=== PATIENT | male | born 1980 | race Asian ===

== ENCOUNTER 2018-06-15 10:12 | Emergency (ER) | payer OTHER ==
--- OUTSIDE RECORDS SUMMARY | 2018-06-15 10:17 | XMS REPORT ---
:1980 External Reference #:[id number] Author Organization [place] [employer] [facility] Address [address] [place] [address] Phone [phone] Care Team Providers Name Role Phone Roman Gusman MD Care Team Information Vault Person Unavailable Roman Gusman MD Primary Care Physician Unavailable Payers Type Date Identification Numbers Payment Provider Subscriber Commercial Policy Number: [id number] [employer] Danielle Whipple PayID: [id number] [address] [place] [id number] Problems Date Description Provider Status Onset: 10/06/2015 Dyssomnia Lizette Barba DNP, RN, Active 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 Onset: 10/06/2015 Hypersomnia Lizette Barba DNP, RN, Active [employer]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 Onset: 01/05/2016 Obstructive sleep apnea Lizette Barba DNP, RN, Active syndrome 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 Family History Date Family Member(s) Problem(s) Comments General MGM DM2 Father No Current Problems Mother No Current Problems Siblings 2 Siblings Brothers healthy Social History Type Date Description Comments Marital Status Single Occupation Currently Working Cigarette Use Quit November 2014 ETOH Use Occasionally consumes alcohol Recreational Drug Use Denies Drug Use Smoking Light tobacco smoker (10 or fewer cigarettes/day) Daily Caffeine Consumes on average 1 cup of regular coffee per day Exercise Type/Frequency Exercises sporadically Allergies, Adverse Reactions, Alerts Date Description Reaction Status Severity Comments 05/10/2015 NKDA active Medications Medication Date Status Form Strength Qnty SIG Indications Ordering Provider Metformin HCL 01/04/ Active Tablets 500mg 60tabs 2 by mouth Lizette 2015 twice a SERG Barba, day RN, 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 Gemfibrozil 05/09/ Active Tablets 600mg 1 by mouth Unknown 2014 twice a day Robitussin 05/09/ Active Syrup as Unknown A-C/Sugar Free 2014 directed Freestyle Lite 05/09/ Active use as Unknown Blood Glucose 2014 directed Monitoring System Ramipril 05/09/ Active Capsules 10mg 1 by mouth Unknown 2014 every day Humalog 05/08/ Active Solution 100Unit/ML use as Jason Phillips, 2015 directed M.D. Lantus / Active Solution 100Unit/ML 50 units Unknown 0000 daily Tajao 04/04/ Hx 48 u in Unknown 2015 - the a.m. 01/21/ subQ 2016 Insulin 02/14/ Hx as Unknown 2015 - directed 01/21/ subQ 2016 Altace 05/09/ Hx Capsules 10mg 1 by mouth Unknown 2014 - every day 2014 Lantus 05/09/ Hx Solution 100Unit/ML 50 units Unknown 2014 - daily subQ 2015 Vital Signs Date Vital Result Comment 05/18/2018 Height 62 inches 5'2" Weight 199.38 lb Heart Rate 74 /min BP Systolic Sitting 130 mmHg Rue large cuff BP Diastolic Sitting 82 mmHg Rue large cuff Respiratory Rate 16 /min O2 % BldC Oximetry 98 % BMI (Body Mass Index) 36.5 kg/m2 05/02/2017 Height 62 inches 5'2" Weight 204.00 lb Heart Rate 60 /min BP Systolic Sitting 122 mmHg BP Diastolic Sitting 74 mmHg Respiratory Rate 14 /min O2 % BldC Oximetry 98 % BMI (Body Mass Index) 37.3 kg/m2 01/22/2017 Height 62 inches 5'2" Heart Rate 90 /min BP Systolic Sitting 130 mmHg BP Diastolic Sitting 82 mmHg Respiratory Rate 18 /min Pain Level 0 O2 % BldC Oximetry 98 % 06/10/2016 Height 62 inches 5'2" Weight 200.00 lb Heart Rate 74 /min BP Systolic Sitting 132 mmHg BP Diastolic Sitting 77 mmHg Respiratory Rate 16 /min O2 % BldC Oximetry 98 % BMI (Body Mass Index) 36.6 kg/m2 04/05/2016 Height 63 inches 5'3" Weight 197.00 lb per pt Heart Rate 66 /min BP Systolic Sitting 130 mmHg BP Diastolic Sitting 66 mmHg Respiratory Rate 16 /min O2 % BldC Oximetry 98 % BMI (Body Mass Index) 34.9 kg/m2 02/16/2016 Height 63 inches 5'3" Weight 208.00 lb Heart Rate 90 /min BP Systolic Sitting 126 mmHg BP Diastolic Sitting 66 mmHg Respiratory Rate 14 /min O2 % BldC Oximetry 98 % BMI (Body Mass Index) 36.8 kg/m2 01/05/2016 Height 63 inches 5'3" Weight 197.00 lb Heart Rate 77 /min BP Systolic 122 mmHg BP Diastolic 70 mmHg Respiratory Rate 14 /min O2 % BldC Oximetry 98 % BMI (Body Mass Index) 34.9 kg/m2 10/06/2015 Height 63 inches 5'3" Weight 197.00 lb Heart Rate 85 /min BP Systolic Sitting 126 mmHg BP Diastolic Sitting 66 mmHg Respiratory Rate 18 /min O2 % BldC Oximetry 97 % BMI (Body Mass Index) 34.9 kg/m2 05/10/2015 Height 63 inches 5'3" Weight 197.25 lb Heart Rate 56 /min BP Systolic Sitting 124 mmHg BP Diastolic Sitting 68 mmHg Respiratory Rate 18 /min O2 % BldC Oximetry 98 % BMI (Body Mass Index) 34.9 kg/m2 Neck Circumference in inches 17 Results Description No Information Procedures Date CPT Code Description Status 10/11/2015 20718 Polysomnography Sleep Staging 4+ Parameters W/Cpap Completed Encounters Type Date Location Provider CPT E/M Dx Office Visit 05/02/2017 [place] [address] G47.33 8:30a [facility] E66.01 Z68.37 Office Visit 01/22/2017 9:45a [facility] Lizette Barba, 82055 G47.33 [facility] LIANET ULRICH, GUSTAVO R09.02 G47.14 Office Visit 06/10/2016 8:00a [facility] Lizette Barba, 30660 G47.33 [facility] Floorperson LIANET ULRICH FNP-BC G47.14 Office Visit 04/05/2016 8:15a [facility] Lizette Barba, 19885 G47.33 [facility] Min ULRICH RN, FNP-BC G47.14 Office Visit 02/16/2016 8:15a [facility] Lizette Barba, 27183 G47.33 [facility] Floorperson LIANET ULRICH FNP-BC G47.10 Office Visit 01/05/2016 8:15a [facility] Lizette Barba, 79371 G47.33 [facility] LIANET ULRICH, [employer] LOADING MACHINE OPERATOR-BING G47.10 Office Visit 10/06/2015 9:15a [facility] Lizette Barba, 82493 G47.10 [facility] LIANET ULRICH, [employer] LOADING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 R06.83 I10 Office Visit 05/10/2015 11:30a [facility] Jason Phillips M.D. 81339 401.9 [facility] 780.57 Plan of Care Future Appointment(s):08/18/2018 8:30 am - Lizette Barba DNP, RN, [employer] SHE[employer] LOADING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 at [facility]05/18/2018 - Lizette Barba DNP, RN, [employer] SHE[employer] LOADING MACHINE OPERATOR- BCG47.33 Obstructive sleep apnea (adult) (pediatric)New Orders:Sleep- TgwaudraY79.821 Inadequate sleep kflgiugJ96.36 Body mass index (BMI) 36.0-36.9, adult
[2018-06-15 10:51] VITALS: BP 113/78
--- NOTE | 2018-06-15 11:08 | UC ---
Skin Complaint HPI - HPI Summary HPI Summary: 37 yo male presents with b/l hand itching. He tells me that 2 days ago he was with some friends and was playing with their dogs outside. Later that night had some itching to his b/l hands. Since that time he has noticed some red scabs to the webs of his fingers with increased itching at bedtime. Has not applied any creams. Denies fever or chills. - History of Current Complaint Chief Complaint: UCRash Time Seen by Provider: 06/15/18 11:08 Stated Complaint: RASH Onset/Duration: Sudden Onset Pain Intensity: 0 - Allergy/Home Medications Allergies/Adverse Reactions: Allergies Allergy/AdvReac Type Severity Reaction Status Date / Time No Known Allergies Allergy Verified 06/15/18 10:51 Review of Systems Constitutional: Negative Skin: Rash - b/l hands Cardiovascular: Negative Gastrointestinal: Negative Neurological: Negative Psychological: Negative All Other Systems Reviewed And Are Negative: Yes PMH/Surg Hx/FS Hx/Imm Hx Endocrine History: Diabetes, Dyslipidemia - Surgical History Surgical History: Yes Surgery Procedure, Year, and Place: tonsillectomy. wisdom teeth - Family History Known Family History: Positive: Diabetes - Social History Occupation: Employed Full-time Lives: With Family Alcohol Use: Weekly Alcohol Amount: 2x week Substance Use Type: None Smoking Status (MU): Former Smoker Length of Time of Smoking/Using Tobacco: quit 3 months ago Physical Exam - Summary Physical Exam Summary: GENERAL: NAD. WDWN. No pain distress. SKIN: B/L hands: web spaces with scattered scabs with faint linear burrows. No streaking, bleeding, or drainage. NECK: Supple. Nontender. No lymphadenopathy. CHEST: No accessory muscle use. Breathing comfortably and in no distress. CV: Pulses intact. Cap refill <2seconds NEURO: Alert. PSYCH: Age appropriate behavior. Triage Information Reviewed: Yes Vital Signs: Initial Vital Signs Temp 97.7 F 06/15/18 10:48 Pulse 83 06/15/18 10:48 Resp 18 06/15/18 10:48 BP 113/78 06/15/18 10:48 Pulse Ox 98 06/15/18 10:48 Vital Signs Reviewed: Yes Course/Dx - Course Course Of Treatment: Suspect scabies. Rx for permethrin and advised to wash all bedding and articles of clothing - Diagnoses Provider Diagnoses: Scabies Discharge - Sign-Out/Discharge Documenting (check all that apply): Patient Departure All imaging exams completed and their final reports reviewed: No Studies - Discharge Plan Condition: Stable Disposition: HOME Prescriptions: Permethrin 5% CREAM* 1 applic TOPICAL SEE INSTRUCTIONS #1 tube Patient Education Materials: Scabies (ED) Referrals: Roman Gusman MD [Primary Care Provider] - Additional Instructions: If you develop a fever, shortness of breath, chest pain, new or worsening symptoms - please call your PCP or go to the ED. - Billing Disposition and Condition Condition: STABLE Disposition: Home - Attestation Statements Provider Attestation: Per institutional requirements, I have reviewed the chart, however, I was not consulted specifically or made aware of this patient by the midlevel provider. I did not personally evaluate, interact with , or disposition this patient.
[2018-06-15] MEDS ORDERED: Tetan/Diph/Pertus SYR(Tdap)* 0.5 ML SYR(BOOSTRIX) use SYR IM ONE (12:39)
== END 2018-06-15 11:21 | disposition home or self-care (01) ==
LOC: UCEAST 10:12
CPT/HCPCS: 90715; 99212; G0463

== ENCOUNTER 2019-02-10 08:38 | Emergency (ER) | payer OTHER ==
[2019-02-10 08:48] VITALS: BP 136/95
--- NOTE | 2019-02-10 09:21 | UC ---
Eye Complaint HPI - HPI Summary HPI Summary: 38-year-old male comes in with a chief complaint of left eye crusting redness and drainage. Been going on for 1 day. He's had several days of upper respiratory tract infection symptoms with runny nose mild sore throat. No chest congestion or shortness of breath. No complaint of foreign body in the eye. No contact lenses. Cleaning off the eye makes it better. Not cleaning it off doesn't make it better. - History of Current Complaint Chief Complaint: UCRespiratory Stated Complaint: CONGESTION/EYE ISSUES Time Seen by Provider: 02/10/19 09:13 Pain Intensity: 0 - Allergies/Home Medications Allergies/Adverse Reactions: Allergies Allergy/AdvReac Type Severity Reaction Status Date / Time No Known Allergies Allergy Verified 02/10/19 08:48 Home Medications: Home Medications Cholecalciferol (Vitamin D3) [Vitamin D3] 1,000 unit PO 02/10/19 [History] Insulin Glargine,Hum.rec.anlog [Basaglar Kwikpen] 55 unit SC 02/10/19 [History] Insulin Lispro [Admelog Solostar] 100 unit SQ 02/10/19 [History] metFORMIN* [Glucophage 500 MG TAB *] 500 mg PO BID 02/10/19 [History Confirmed 02/10/19] PMH/Surg Hx/FS Hx/Imm Hx Previously Healthy: Yes Endocrine History: Diabetes, Dyslipidemia - Surgical History Surgical History: Yes Surgery Procedure, Year, and Place: tonsillectomy. wisdom teeth - Family History Known Family History: Positive: Diabetes - Social History Alcohol Use: Occasionally Alcohol Amount: 2x week Substance Use Type: None Smoking Status (MU): Former Smoker Length of Time of Smoking/Using Tobacco: quit 3 months ago Review of Systems All Other Systems Reviewed And Are Negative: Yes Constitutional: Positive: Negative Skin: Positive: Negative Eyes: Positive: Drainage, Eye Redness ENT: Positive: Sore Throat, Nasal Discharge, Sinus Congestion Respiratory: Positive: Negative Cardiovascular: Positive: Negative Gastrointestinal: Positive: Negative Motor: Positive: Negative Neurovascular: Positive: Negative Musculoskeletal: Positive: Negative Neurological: Positive: Negative Psychological: Positive: Negative Is Patient Immunocompromised?: No Physical Exam Triage Information Reviewed: Yes Appearance: No Pain Distress, Well-Nourished, Ill-Appearing - MILD Vital Signs: Initial Vital Signs Temp 99.0 F 02/10/19 08:46 Pulse 88 02/10/19 08:46 Resp 18 02/10/19 08:46 BP 136/95 02/10/19 08:46 Pulse Ox 98 02/10/19 08:46 Vital Signs Reviewed: Yes Eyes: Positive: Conjunctiva Inflamed - LEFT, Discharge - LEFT ENT: Positive: Pharyngeal erythema, Nasal congestion, Nasal drainage, TMs normal Neck exam: Normal Neck: Positive: Supple, Nontender Respiratory: Positive: Lungs clear, Normal breath sounds, No respiratory distress Cardiovascular: Positive: RRR Musculoskeletal Exam: Normal Musculoskeletal: Positive: Strength Intact, ROM Intact Neurological Exam: Normal Neurological: Positive: Alert, Muscle Tone Normal Psychological Exam: Normal Psychological: Positive: Age Appropriate Behavior Skin Exam: Normal Eye Complaint Course/Dx - Differential Dx/Diagnosis Provider Diagnosis: Left conjunctivitis, Upper respiratory infection Discharge - Sign-Out/Discharge Documenting (check all that apply): Patient Departure All imaging exams completed and their final reports reviewed: No Studies - Discharge Plan Condition: Stable Disposition: HOME Prescriptions: Tobramycin 0.3% OPHTH.RAJI* 1 drop LEFT EYE Q4H #1 btl Patient Education Materials: Upper Respiratory Infection (ED), Conjunctivitis ( ED) Forms: *Work Release Referrals: Roman Gusman MD [Primary Care Provider] - Additional Instructions: FOLLOW UP WITH YOUR DOCTOR IF NOT COMPLETELY IMPROVED. GET RECHECKED SOONER IF YOUR CONDITION WORSENS OR ANY QUESTIONS OR CONCERNS. - Billing Disposition and Condition Condition: STABLE Disposition: Home
== END 2019-02-10 09:30 | disposition home or self-care (01) ==
LOC: UCEAST 08:38
DX: H10.9 Unspecified conjunctivitis (principal); J06.9 Acute upper respiratory infection, unspecified; Z87.891 Personal history of nicotine dependence; E11.9 Type 2 diabetes mellitus without complications; Z79.4 Long term (current) use of insulin
CPT/HCPCS: 99212; G0463

== ENCOUNTER 2019-09-06 10:01 | Emergency (ER) | payer OTHER ==
--- NOTE | 2019-09-06 10:17 | UC ---
Respiratory Complaint HPI - HPI Summary HPI Summary: 39 yo male presents with URI symptoms. He tells me that for the last 3-4 days he has been having an intermittently productive cough, sinus congestion, post nasal drip, body aches, and fatigue. He has been taking mucinex OTC with little relief. After 24 hours he thought he was feeling better, but then his symptoms worsened. He has felt feverish, but has not taken his temperature. Admits that he has not checked his sugars over the last few days because he is ill and "knows it will be high". He does not smoke. Denies SOB, chest pain, abdominal pain, n/v, dysuria. - History of Current Complaint Stated Complaint: RESPIRTORY PROBLEM Hx Obtained From: Patient Onset/Duration: Gradual Onset Severity Initially: Mild Severity Currently: Moderate Pain Intensity: 7 Pain Scale Used: 0-10 Numeric - Allergies/Home Medications Allergies/Adverse Reactions: Allergies Allergy/AdvReac Type Severity Reaction Status Date / Time No Known Allergies Allergy Verified 09/06/19 10:22 PMH/Surg Hx/FS Hx/Imm Hx Endocrine History: Diabetes - Surgical History Surgical History: Yes Surgery Procedure, Year, and Place: tonsillectomy. wisdom teeth - Family History Known Family History: Positive: Diabetes - Social History Lives: With Family Alcohol Use: Occasionally Alcohol Amount: 2x week Substance Use Type: None Smoking Status (MU): Former Smoker Length of Time of Smoking/Using Tobacco: quit 3 months ago Review of Systems All Other Systems Reviewed And Are Negative: No Constitutional: Positive: Fatigue, Other - Body aches Skin: Positive: Negative Eyes: Positive: Negative ENT: Positive: Sinus Congestion Respiratory: Positive: Cough Cardiovascular: Positive: Negative Gastrointestinal: Positive: Negative Neurological: Positive: Negative Psychological: Positive: Negative Physical Exam - Summary Physical Exam Summary: GENERAL: NAD. WDWN. No pain distress. SKIN: No rashes, sores, lesions, or open wounds. HEENT: Head: AT/NC Eyes: Conjunctiva clear without inflammation or discharge. Ears: Hearing grossly normal. TMs intact, no bulging, erythema, or edema. Nose: Nasal mucosa pink and moist. NTTP maxillary and frontal sinus. Throat: Posterior oropharynx without exudates, erythema, or tonsillar enlargement. Uvula midline. NECK: Supple. Nontender. No lymphadenopathy. CHEST: Mild wheezing right > left. No r/r. No accessory muscle use. Breathing comfortably and in no distress. CV: RRR. Pulses intact. Cap refill <2seconds NEURO: Alert. PSYCH: Age appropriate behavior. Triage Information Reviewed: Yes Vital Signs: Vital Signs: Temp Pulse Resp BP Pulse Ox 100.2 F 110 20 126/88 98 09/06/19 10:17 09/06/19 10:17 09/06/19 10:17 09/06/19 10:17 09/06/19 10:17 Laboratory Tests 09/06/19 10:32 POC Glucose (mg/dL) 92 Vital Signs Reviewed: Yes Diagnostics - Radiology CXR Radiology Interpretation Completed By: Radiologist Summary of Radiographic Findings: IMPRESSION: NO ACTIVE CARDIOPULMONARY DISEASE. Respiratory Course/Dx - Course Course Of Treatment: POC glucose 92. POC flu POSITIVE CXR as above. Rx for tamiflu. - Differential Dx/Diagnosis Provider Diagnosis: Influenza Discharge ED - Sign-Out/Discharge Documenting (check all that apply): Patient Departure All imaging exams completed and their final reports reviewed: Yes - Discharge Plan Condition: Stable Disposition: HOME Prescriptions: Oseltamivir CAP* [Tamiflu CAP*] 75 mg PO BID #10 cap Patient Education Materials: Influenza (ED) Forms: *Work Release Referrals: Roman Gusman MD [Primary Care Provider] - Additional Instructions: If you develop a fever, shortness of breath, chest pain, new or worsening symptoms - please call your PCP or go to the ED immediately. Most people with the flu recover within one to two weeks without treatment. However, serious complications of the flu can occur. Go to the ER immediately if you: -- You feel short of breath or have trouble breathing -- You have pain or pressure in your chest or stomach -- You have signs of being dehydrated, such as dizziness when standing or not passing urine -- You feel confused -- You cannot stop vomiting or you cannot drink enough fluids There are several groups of people who are at increased risk for flu complications. These include women, young children (<5 years of age and especially <2 years of age), people older than 65 years of age, and people with certain diseases such as chronic lung disease (such as asthma), heart disease, diabetes, immunosuppressing conditions (such as HIV infection or transplantation), and some other diseases. Treat symptoms Treating the symptoms of influenza can help you to feel better but will not make the flu go away faster. -- Rest until the flu is fully resolved, especially if the illness has been severe. -- Fluids Drink enough fluids so that you do not become dehydrated. One way to county judge if you are drinking enough is to look at the color of your urine. Normally, urine should be light yellow to nearly colorless. If you are drinking enough, you should pass urine every three to five hours. -- Acetaminophen (sample brand name: Tylenol) can relieve fever, headache, and muscle aches. Aspirin and medicines that include aspirin (eg, bismuth subsalicylate [sample brand name: Pepto-Bismol]) are not recommended for children under 18 because aspirin can lead to a serious disease called Brent syndrome. -- Cough medicines are not usually helpful; cough usually resolves without treatment. We do not recommend cough or cold medicine for children under age 6 years. Antiviral treatment Antiviral medicines can be used to treat or prevent influenza. When used as a treatment, the medicine does not eliminate flu symptoms, although it can reduce the severity and duration of symptoms by about one day. Not every person with influenza needs an antiviral medicine, but some people do; the decision is based upon several factors. If you are severely ill and/or have risk factors for developing complications of influenza, you will need an antiviral agent. People who are only mildly ill and have no risk factors for complications usually do not need to be treated with antiviral medication. - Billing Disposition and Condition Condition: STABLE Disposition: Home
[2019-09-06 10:21] VITALS: BP 126/88
[2019-09-06] MEDS ORDERED: Acetaminophen TAB* 325 MG PO ONE (10:26)
[2019-09-06 15:30] LABS: Influenza A Molecular POSITIVE (Negative)
== END 2019-09-06 10:57 | disposition home or self-care (01) ==
LOC: UCEAST 10:01
DX: J11.1 Influenza due to unidentified influenza virus with other respiratory manifestations (principal); E11.9 Type 2 diabetes mellitus without complications; R09.82 Postnasal drip; Z87.891 Personal history of nicotine dependence
CPT/HCPCS: 71046; 99212; A9270-GY; G0463